=== PATIENT | male | born 1970 | race Hispanic/Latino ===

== ENCOUNTER → 2017-10-23 | Day surgery (SDC) | payer OTHER ==
[2017-10-21 11:10] LABS: BASOPHILS # (AUTO) 0.1 (0.0-0.1); BASOPHILS % 0.5 % (0.0-1.0); EOSINOPHILS # (AUTO) 0.2 (0.0-0.4); EOSINOPHILS % 1.5 % (0.0-6.0); HEMATOCRIT 44.6 % (38.2-49.6); HEMOGLOBIN 15.1 g/dL (14.0-18.0); LYMPHOCYTES # (AUTO) 3.7 (1.0-3.2); MEAN CORPUSCULAR HEMOGLOBIN 27.6 pg (28-32); MEAN CORPUSCULAR HGB CONC 33.9 g/dL (31-35); MEAN CORPUSCULAR VOLUME 81.4 fL (81-99); MONOCYTES % 8.7 % (4.4-11.3); NEUTROPHILS # (AUTO) 5.9 (2.1-6.9); NEUTROPHILS % 53.7 % (38.7-80.0); PLATELET COUNT 281 x10e3/uL (140-360); RED BLOOD COUNT 5.48 x10e6/uL (4.3-5.7); RED CELL DISTRIBUTION WIDTH 13.9 % (11.7-14.4)
[2017-10-21 11:31] LABS: ANION GAP 14.2 mmol/L (8-16); BLOOD UREA NITROGEN 19 mg/dL (7-26); BUN/CREATININE RATIO 20 (6-25); CARBON DIOXIDE 28 mmol/L (22-29); CHLORIDE 103 mmol/L (98-107); CREATININE, SERUM 0.93 mg/dL (0.72-1.25); EST GLOMERULAR FILTRATION RATE > 60 ML/MIN (60-); GLUCOSE 176 mg/dL (74-118); POTASSIUM 4.2 mmol/L (3.5-5.1); SODIUM 141 mmol/L (136-145)
[~2017-10-23] MED LIST: BUPIVACAINE 0.25%/EPI 30ML SDV INJ ONE; CEFAZOLIN SOD 1 GM VIAL ONE; DEXAMETHASONE SOD PHOS INJ 4 MG/ML VIAL ONE; FENTANYL CITRATE/PF 100MCG/2 ML INJ ONE; GLYCOPYRROLATE INJ 0.2 MG/ML VIAL ONE; GLYCOPYRROLATE INJ 1MG/ 5 ML SYR ONE; LIDOCAINE HCL 2% LOCAL INJ 5 ML SDV VIAL INJ ONE; MIDAZOLAM HCL 2 MG/2 ML VIAL ONE; NEOSTIGMINE 5 MG/5ML SYR ONE; ONDANSETRON HCL INJ 2 MG/ML VIAL ONE; PROPOFOL IV EMULSION 10 MG/ML 20 ML VIAL ONE; ROCURONIUM BROMIDE 10 MG/ML 5ML VIAL ONE; SEVOFLURANE INHAL SOLN 250 ML PEN BTL ONE
--- OUTSIDE RECORDS SUMMARY | 2017-10-23 07:10 | XMS REPORT ---
Author [facility] [place] [facility] Address Unknown Phone Unavailable Care Team Providers Care Basket Person Name Role Phone Unavailable Unavailable Problems This patient has no known problems. Allergies, Adverse Reactions, Alerts This patient has no known allergies or adverse reactions. Medications This patient has no known medications. Results Test Description Test Time Test Comments Text Results Atomic Results Result Comments MRI LUMBAR WO CLINICAL INDICATION: M51.06 Intervertebral disc disorders with myelopathy, lumbar regionMODALITY: Avanto 1.5 Blanca 18 channel MRI TECHNIQUE: Multiplanar multi sequence MRI examination of the lumbar spine was performed.IMPRESSION:1. At the L4-5 level, 2 mm broad-based disc protrusion effaces ventral thecal sac and together with mild bilateral facet hypertrophy just abuts the L5 nerve roots within the bilateral L4-5 lateral recesses without central stenosis or neural foraminal narrowing.2. At the L3-4 level, 2 mm broad-based disc protrusion effaces ventral thecal sac without significant central stenosis or neural foraminal narrowing. Mild bilateral facet hypertrophy.3. At the L5-S1 level, 1 mm broad-based disc protrusion effaces ventral thecal sac without significant central stenosis or neural foraminal narrowing. Mild bilateral facet joint hypertrophy.4. Mild desiccation at the L3-4, L4-5, L5-S1 disc spaces.FINDINGS:COMPARISON: noneOsseous structures: Five [id number] lumbar-type vertebral bodies will be assumed. No fractures, spondylolisthesis, spondylolysis, nor any marrow replacement process.Surrounding soft tissues: No aneurysms, adenopathy, nor any focal masses.Spinal cord: Spinal cord conus at the appropriate L1 level. Distal cord and conus are normal.Hydration: Mild desiccation at the L3-4, L4-5, L5-S1 disc spaces.FINDINGS AT SPECIFIC LEVELS:L5-S1: 1 mm broad-based disc protrusion effaces ventral thecal sac without significant central stenosis or neural foraminal narrowing. Mild bilateral facet joint hypertrophy.L4-L5: 2 mm broad-based disc protrusion effaces ventral thecal sac and together with mild bilateral facet hypertrophy just abuts the L5 nerve roots within the bilateral L4-5 lateral recesses without central stenosis or neural foraminal narrowing.L3- L4: 2 mm broad-based disc protrusion effaces ventral thecal sac without significant central stenosis or neural foraminal narrowing. Mild bilateral facet hypertrophy.L2-L3: No significant focal disc protrusion, central stenosis neural foraminal narrowing. Facet joints normal.L1-L2: No significant focal disc protrusion, central stenosis or neural foraminal narrowing. Facet joints normal.
--- NOTE | 2017-10-23 13:43 | Operative Report ---
DATE OF PROCEDURE: October 23, 2017 PREOPERATIVE DIAGNOSES 1. Incarcerated umbilical hernia. 2. Morbid obesity. POSTOPERATIVE DIAGNOSES 1. Incarcerated umbilical hernia. 2. Morbid obesity. PROCEDURE PERFORMED: Repair of incarcerated umbilical hernia with the Proceed ventral patch medium size. SURGEON: Rusty Lema MD ANESTHESIA: General. KENO MANAGER: JOB Mathew ESTIMATED BLOOD LOSS: Minimal. DRAINS: None. COMPLICATIONS: None. INDICATIONS AND FINDINGS: This patient is a 46-year-old male who complains of having fell at work sustaining an injury to his lower back and subsequently noticed an umbilical hernia. There were no GI symptoms. The patient was preoperatively seen by an orthopedic surgeon and cleared for surgery. INTRAOPERATIVE FINDINGS: Incarcerated umbilical hernia with herniation of properitoneal fat. The Proceed ventral patch medium size mesh was placed in the preperitoneal space and it was laid out flat against the abdominal wall and the preperitoneal space after this space was developed. DESCRIPTION OF PROCEDURE: With the patient lying on the operative table in the supine position after administration of general anesthesia, he was prepped and draped for repair of umbilical hernia. An incision was made inferior to the umbilicus and dissection was carried down to the skin subcutaneous tissue until the hernia was identified. The hernia was dissected free from the surrounding tissues including the undersurface of the umbilical skin. At this point we decided to develop the preperitoneal space using blunt dissection. This was then performed without any difficulties and then after we developed the plane we went ahead and deployed the Proceed ventral patch medium size mesh with the mesh laying flat against the abdominal wall and the preperitoneal space. The mesh was secured to local tissues using a combination 0 and 2 Ethibond sutures to secure the mesh against the fascia to prevent any dislodgement of the mesh. The mesh was also secured in addition to the sides of the abdominal wall right and left with a series of interrupted 0 Ethibond sutures, three of them on each inch strap which was then closed. At this point we irrigated the wound, then we loosely approximated the fascia over the mesh with interrupted 0 Ethibond sutures, infiltrated the fascia and then closed the wounds using 0 chromic for the soft tissues and deeper layers and 2-0 Vicryl for the more superficial subcuticular layer. The skin was closed using a combination of castro and 3-0 silk. Sterile dressing was applied as well as an abdominal binder. The patient tolerated the procedure well, taken to recovery room in stable condition. Preoperatively the patient was advised to try to lose weight if possible at all and even consider bariatric surgery as he meets criteria for morbid obesity with a BMI greater than 40. Job#: [id number] NONI
== END | disposition home or self-care (01) ==
LOC: OR 07:08
PROVIDERS: ATTEND Surgery
DX: K42.0 Umbilical hernia with obstruction, without gangrene (principal); E66.01 Morbid (severe) obesity due to excess calories; R06.83 Snoring; S39.92XA Unspecified injury of lower back, initial encounter; W19.XXXA Unspecified fall, initial encounter; Y92.89 Other specified places as the place of occurrence of the external cause; Y99.0 Civilian activity done for income or pay; Z01.810 Encounter for preprocedural cardiovascular examination; Z01.812 Encounter for preprocedural laboratory examination; Z68.41 Body mass index [BMI] 40.0-44.9, adult; Z87.891 Personal history of nicotine dependence
CPT/HCPCS: 36415; 49587; 80048; 85025; 93005; C1781; J0690; J1100; J2001; J2250; J2405